=== PATIENT | male | born 1975 | race Hispanic/Latino ===

== ENCOUNTER → 2019-06-17 | Outpatient (CLI) | payer OTHER ==
[2019-06-17 11:27] LABS: BASOPHILS % (AUTO) 0.5 % (0.0-5.0); EOSINOPHILS % (AUTO) 2.9 % (0.0-8.0); HEMATOCRIT 47.2 % (42-54); LYMPHOCYTES % (AUTO) 38.6 % (21.0-51.0); MEAN CORPUSCULAR HEMOGLOBIN 30.1 pg (27.0-33.0); MEAN CORPUSCULAR HGB CONC 34.5 g/dL (32.0-36.0); MEAN CORPUSCULAR VOLUME 87.5 fL (79-99); MONOCYTES % (AUTO) 7.3 % (3.0-13.0); NEUTROPHILS % (AUTO) 50.7 % (40.0-77.0); NUCLEATED RED BLOOD CELLS 0.1 % (0.0-0.19); PLATELET COUNT (AUTO) 224 K/uL (130-400); RED BLOOD CELL COUNT(AUTO) 5.39 MIL/uL (4.50-6.20); WHITE BLOOD COUNT (AUTO) 8.6 K/uL (4.8-10.8)
[2019-06-17 11:48] LABS: ALBUMIN 3.7 g/dL (3.5-5.0); BILIRUBIN,DIRECT 0.2 mg/dL (0.0-0.3); BILIRUBIN,TOTAL 0.6 mg/dL (0.2-1.0); CREATININE 0.8 mg/dL (0.5-1.5); POTASSIUM 4.1 mmol/L (3.5-5.1); THYROID STIMULATING HORMONE 0.74 uIU/mL (0.36-3.74)
== END | disposition home or self-care (01) ==
LOC: RAH 10:10
PROVIDERS: ATTEND Preventive Medicine Obesity Medicine
DX: Z11.1 Encounter for screening for respiratory tuberculosis (principal); N52.8 Other male erectile dysfunction; G47.33 Obstructive sleep apnea (adult) (pediatric); G43.909 Migraine, unspecified, not intractable, without status migrainosus; E66.01 Morbid (severe) obesity due to excess calories
CPT/HCPCS: 36415; 71046; 80048; 80061; 80076; 84443; 85025